=== PATIENT | male | born 1970 | race Caucasian/White ===

== ENCOUNTER 2017-06-11 05:45 | Emergency (ER) | payer BC ==
[2017-06-11 06:01] VITALS: BP 156/85; PULSE 79; RESP 20; TEMP 97.3; O2SAT 97
[2017-06-11] MEDS ORDERED: FAMOTIDINE 20 MG TAB PO ONE (06:15)
[2017-06-11] MEDS ORDERED: predniSONE 20 MG TAB PO ONE (06:15)
--- NOTE | 2017-06-11 06:23 | EDPHY ---
H & P Time Seen by Provider: 06/11/17 06:03 HPI/ROS: This patient complains of itching rash that started Monday new the umbilicus in his spread throughout all 4 extremities and back since then with significant itching. He has been taking citrizine HCL antihistamine without significant improvement and this morning for the 1st time he developed associated angioedema to his lips describing lip swelling and final symptom is what prompted him his visit. He drove himself here by private car for further evaluation. ROS: Constitutional: No fevers or significant fatigue HEENT: No dysphonia. Pulmonary: No dyspnea Cardiovascular: No lightheadedness her heart palpitations GI: No nausea vomiting 10 point ROS is otherwise negative. 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 He can't think of any other new allergens. He does have 2 dogs but he has had them for years. He smokes cigarettes on average 5 to 8 cigarettes a day. Occasional marijuana, no alcohol Smoking Status: Light smoker Physical Exam: General Appearance: Alert, no distress. Eyes: Pupils equal and round no pallor or injection. ENT, Mouth: Mucous membranes moist. Patient has mild swelling of the lips upper and lower. However he maintains a Mallampati 1 airway. There is no drooling or stridor. No dysphonia. No intraoral lesions. Respiratory: There are no retractions, lungs are clear to auscultation. No wheezing. Cardiovascular: Regular rate and rhythm. No murmur gallop or rub Neurological: GCS 15 without deficits Skin: Diffuse erythematous raised lesions tobias easily with pressure consistent with urticaria on belly, back and all 4 extremities. Musculoskeletal: Neck is supple nontender. Extremities are symmetrical, full range of motion. Psychiatric: Mood and affect are normal DIFFERENTIAL DIAGNOSIS: After history and physical exam differential diagnosis was considered for allergic urticaria, angioedema atopic dermatitis Constitutional: Initial Vital Signs Temperature (C) 36.3 C 06/11/17 05:50 Heart Rate 79 06/11/17 05:50 Respiratory Rate 20 06/11/17 05:50 Blood Pressure 156/85 H 06/11/17 05:50 O2 Sat (%) 97 06/11/17 05:50 O2 Delivery Mode Room Air Allergies/Adverse Reactions: No Known Allergies Allergy (Verified 06/11/17 05:47) Home Medications: Medication Instructions Recorded Citalopram 03/24/14 Prilosec 03/24/14 Statin 06/11/17 predniSONE 40 mg PO DAILY #9 tab 06/11/17 traZODone 06/11/17 MDM/Departure - MDM Medications Given: Discontinued Medications Famotidine (Pepcid) 40 mg PO EDNOW ONE Stop: 06/11/17 06:16 Last Admin: 06/11/17 06:23 Dose: 40 mg Prednisone (Prednisone) 60 mg PO EDNOW ONE Stop: 06/11/17 06:16 Last Admin: 06/11/17 06:23 Dose: 60 mg ED Course/Re-evaluation: Patient with 2 and half days of symptoms without clinical evidence of anaphylaxis at this time. Prednisone-60 mg p.o. and Pepcid. Patient will take Benadryl when he gets home. I counseled patient regarding angioedema and allergic urticaria. The source of his allergic response is unclear. Encouraged him to follow up with Dr. Ludwig- sheet metal mechanic He understands the need to return the emergency department should he developed any significant worsening with symptoms despite the treatment plan. - Depart Disposition: Home, Routine, Self-Care Clinical Impression: Allergic reaction Qualifiers: Encounter type: initial encounter Qualified Code(s): T78.40XA - Allergy, unspecified, initial encounter Angioedema Qualifiers: Encounter type: initial encounter Qualified Code(s): T78.3XXA - Angioneurotic edema, initial encounter Condition: Good Instructions: Urticaria (ED), Angioedema (ED) Additional Instructions: Dx: Allergic urticaria 2. Angioedema Plan: Prednisone in the morning for the next 3-5 days Diphenhydramine 25-50 mg per 6 hours as needed or antihistamine of your choice Pepcid in addition 40 mg a day. Return for any significant worsening despite the treatment plan Consider follow-up with Dr. Ludwig-sheet metal mechanic for skin testing to tried ascertain the source of your allergic response. This Referrals: Michael LUDWIG [Medical Doctor] - As per Instructions
== END 2017-06-11 06:40 | disposition home or self-care (01) ==
LOC: CED 05:45
DX: T78.3XXA Angioneurotic edema, initial encounter (principal); F17.210 Nicotine dependence, cigarettes, uncomplicated

== ENCOUNTER → 2017-07-04 | Outpatient (CLI) | payer BC, OTHER | LOC: FIMAGING 07:27 | PROVIDERS: ATTEND Orthopaedic Surgery | DX: Z01.818 Encounter for other preprocedural examination (principal); M17.12 Unilateral primary osteoarthritis, left knee ==

== ENCOUNTER 2017-08-01 05:55 | Inpatient (IN) | payer BC ==
[2017-08-01] MEDS ORDERED: TRANEXAMIC ACID 880 MG in NS 100 ML IV ONE (06:00)
[2017-08-01] MEDS ORDERED: ROPIVACAINE 0.2% 80 MG, EPINEPHrine 0.2 MG, KETOROLAC TROMETHAMINE 30 MG, morphINE 10 M... IU ONE (06:00)
[2017-08-01] MEDS ORDERED: ceFAZolin 2 GM/DEXTROSE 100 ML IV ONE (06:06)
[2017-08-01] MEDS ORDERED: ACETAMINOPHEN 325 MG TAB PO ONE (06:06)
[2017-08-01] MEDS ORDERED: FAMOTIDINE 20 MG TAB PO ONE (06:06)
[2017-08-01] MEDS ORDERED: LR 1,000 ML IV ONE (06:11)
[2017-08-01] MEDS ORDERED: LIDOCAINE 1% 2 ML INJ ID PRN (06:11)
[2017-08-01] MEDS ORDERED: LIDOCAINE 1% 2 ML INJ ONE (06:16)
--- NOTE | 2017-08-01 06:26 | PDHPUP ---
History & Physical Update H&P update statement: This history and physical update is based on an assessment of the patient which was completed after admission or registration (within 24 hours), but prior to the surgery/procedure.
--- NOTE | 2017-08-01 06:28 | PDIAF ---
- Diagnosis Diagnosis: left knee djd Code Status: Full Code - Medication Management Discharge Medications: Medications to Continue on Transfer Atorvastatin Calcium [Lipitor 40 mg (*)] 40 mg PO DAILY 06/27/17 [Last Taken Unknown] Omeprazole [Prilosec 20 mg] 20 mg PO DAILY 06/27/17 [Last Taken Unknown] Sertraline HCl [Zoloft 100mg (*)] 150 mg PO DAILY 06/27/17 [Last Taken Unknown] traZODone [traZODONE 50MG (*)] 50 mg PO HS 06/27/17 [Last Taken Unknown] Discharge Medications: Refer to the Discharge Home Medication list for PRN reason. - Orders Services needed: Home Care, Physical Therapy Home Care Face to Face: I certify that this patient was under my care and that I had the required [id number] encounter meeting the encounter requirements on the discharge day. My findings support the fact that the patient is homebound as defined in Home Care Face to Face Continued: CMS Chapter 7 Medicare Benefits Manual 30.1.1 , The condition of the patient is such that there exists a normal inability to leave home and consequently, leaving home would require a considerable and taxing effort. Diet Recommendation: no restrictions on diet Diet Texture: Regular Texture Diet Activity/Weight Bearing Restrictions: wbat. rom as tolerated. daily dressing changes. may shower without bandage. no soaking or immersion. aspirin 325 mg po daily. hilario hose x 2 weeks. f/u at two weeks. seek attn for increasing pain , leg pain or swelling , drainage - Follow Up Care Current Providers and Referrals: Trae Mendieta MD [Primary Care Provider] -
[2017-08-01] MEDS ORDERED: ceFAZolin 2 GM/SWFI 2 GM/20 ML SYR IVP ONE (06:30)
[2017-08-01] MEDS ORDERED: CALCIUM CHLORIDE 1 GM/10 ML INJ ONE (06:52)
[2017-08-01] MEDS ORDERED: THROMBIN (BOVINE) 5,000 UNIT VIAL TP ONE (06:52)
[2017-08-01] MEDS ORDERED: ceFAZolin 1 GM/5 ML SYR ONE (06:52)
[2017-08-01] MEDS ORDERED: MIDAZOLAM 2 MG/2 ML VIAL ONE (07:00)
[2017-08-01] MEDS ORDERED: MIDAZOLAM 2 MG/2 ML VIAL IVP ONE (07:06)
--- NOTE | 2017-08-01 07:06 | PDANEPAE ---
ANE History of Present Illness 47 year old male for left total knee. ANE Past Medical History - Cardiovascular History Hx Hypertension: No Hx Arrhythmias: No Hx Chest Pain: No Hx Coronary Artery / Peripheral Vascular Disease: No Hx CHF / Valvular Disease: No Hx Palpitations: No Cardiovascular History Comment: high chol - Pulmonary History Hx COPD: No Hx Asthma/Reactive Airway Disease: No Hx Recent Upper Respiratory Infection: No Hx Oxygen in Use at Home: No Hx Sleep Apnea: Yes Sleep Apnea Screening Result - Last Documented: Positive Pulmonary History Comment: dung positive doesn't use cpap or o2 - Neurologic History Hx Cerebrovascular Accident: No Hx Seizures: No Hx Dementia: No - Endocrine History Hx Diabetes: No Hypothyroid: No Hyperthyroid: No Obesity: mild - Renal History Hx Renal Disorders: No - Liver History Hx Hepatic Disorders: No - Neurological & Psychiatric Hx Hx Neurological and Psychiatric Disorders: No - Cancer History Hx Cancer: No - Congenital Disorder History Hx Congenital Disorders: No - GI History GERD: mild Hx Gastrointestinal Disorders: Yes Gastrointestinal History Comment: reflux- on omeprazole - Other Health History Other Health History: wears glasses - Chronic Pain History Chronic Pain: Yes (left knee pain) - Surgical History Prior Surgeries: left knee scope. right knee scope ANE Review of Systems Review of systems is: negative Review of Systems: - Exercise capacity Exercise capacity: >=4 METS METS (RN): 4 METS ANE Patient History - Allergies Allergies/Adverse Reactions: No Known Allergies Allergy (Verified 07/04/17 11:21) - Home Medications Home medications: home medication list seen and reviewed Home Medications: Atorvastatin Calcium [Lipitor 40 mg (*)] 40 mg PO DAILY 06/27/17 [Last Taken 18:00] Omeprazole [Prilosec 20 mg] 20 mg PO DAILY 06/27/17 [Last Taken 07/31/17 18:00] Sertraline HCl [Zoloft 100mg (*)] 150 mg PO DAILY 06/27/17 [Last Taken 07/31/17 18:00] traZODone [traZODONE 50MG (*)] 50 mg PO HS 06/27/17 [Last Taken 07/31/17 18:00] - NPO status NPO Status: no food or drink >8 hours NPO Since - Liquids (Date): 07/31/17 NPO Since - Liquids (Time): 18:00 NPO Since - Solids (Date): 07/31/17 NPO Since - Solids (Time): 18:00 - Anes Hx Anes Hx: no prior problems - Smoking Hx Smoking Status: Light smoker - Alcohol Use Alcohol Use: Occasionally - Family Anes Hx Family Anes Hx: neg - N/A Family Hx Anesthesia Complications: none ANE Labs/Vital Signs - Vital Signs Vital Signs: reviewed preoperatively; see RN documention for details Blood Pressure: 141/96 Heart Rate: 100 Respiratory Rate: 15 O2 Sat (%): 93 Height: 172.72 cm Weight: 88.451 kg ANE Physical Exam - Airway Neck exam: FROM Mallampati Score: Class 2 Mouth exam: normal dental/mouth exam, guzmán - Pulmonary Pulmonary: no respiratory distress - Cardiovascular Cardiovascular: regular rate and rhythym - ASA Status ASA Status: II ANE Anesthesia Plan Anesthesia Plan: MAC, spinal Regional Anesthesia: single shot NB, adductor canal FNB, POPC/PSR Total IV Anesthesia: No
[2017-08-01] MEDS ORDERED: PROPOFOL/EMULSION 500 MG/50 ML BOTTLE IV ONE ×2 (07:09→07:50)
[2017-08-01] MEDS ORDERED: BUPIVACAINE/DEXTROSE 7.5MG/ML 2 ML SPINAL AMP SP ONE (07:12)
[2017-08-01] MEDS ORDERED: LIDOCAINE 2% JELLY 5 ML TUBE ONE (07:43)
[2017-08-01] MEDS ORDERED: DEXAMETHASONE 4 MG/ML VIAL ONE (07:48)
[2017-08-01] MEDS ORDERED: ONDANSETRON 4 MG/2 ML VIAL ONE (07:48)
[2017-08-01] MEDS ORDERED: ROPIVACAINE HCL 150 MG/30 ML INJ ONE (07:50)
[2017-08-01] MEDS ORDERED: NALOXONE HCL 0.4 MG/ML INJ IVP PRN (08:04)
[2017-08-01] MEDS ORDERED: ONDANSETRON 4 MG/2 ML VIAL IVP PRN ×2 (08:04→09:09)
[2017-08-01] MEDS ORDERED: LR 500 ML IV PRN (08:04)
[2017-08-01] MEDS ORDERED: OXYCODONE/APAP 5/325 TAB PO PRN (08:04)
[2017-08-01] MEDS ORDERED: HYDROmorphONE/DILAUDID 1 MG/ML INJ IVP PRN (08:04)
[2017-08-01] MEDS ORDERED: fentaNYL 100 MCG/2 ML INJ IVP PRN (08:04)
[2017-08-01] MEDS ORDERED: MAGNESIUM HYDROXIDE 30 ML UDCUP PO PRN (09:09)
[2017-08-01] MEDS ORDERED: BISACODYL 10 MG SUPP PR PRN (09:09)
[2017-08-01] MEDS ORDERED: ONDANSETRON DISINTEGRATING 4 MG TAB PO PRN (09:09)
[2017-08-01] MEDS ORDERED: DIAZEPAM 5 MG TAB PO PRN (09:09)
[2017-08-01] MEDS ORDERED: diphenhydrAMINE 25 MG CAP PO PRN (09:09)
[2017-08-01] MEDS ORDERED: traMADol 50 MG TAB PO PRN (09:09)
[2017-08-01] MEDS ORDERED: DIPHENOXYLATE/ATROPINE LOMOTIL 1 TAB PO PRN (09:09)
[2017-08-01] MEDS ORDERED: PROMETHAZINE HCL 25 MG SUPPR PR PRN (09:09)
[2017-08-01] MEDS ORDERED: POLYETHYLENE GLYCOL 3350 17 GM PKT PO PRN (09:09)
[2017-08-01] MEDS ORDERED: TEMAZEPAM 15 MG CAP PO PRN (09:09)
[2017-08-01] MEDS ORDERED: PROMETHAZINE HCL 25 MG/ML INJ IVP PRN (09:09)
[2017-08-01] MEDS ORDERED: LACTULOSE 20 GM/30 ML UDCUP PO PRN (09:09)
[2017-08-01] MEDS ORDERED: METOCLOPRAMIDE 10 MG/2 ML VIAL IVP PRN (09:09)
[2017-08-01] MEDS ORDERED: LR 1,000 ML IV SCH (09:30)
[2017-08-01] MEDS: oxyCODONE IR 5 MG TAB PO PRN ×5 (11:04→20:51)
[2017-08-01] MEDS: ACETAMINOPHEN 325 MG TAB PO SCH ×3 (11:05→23:59)
--- NOTE | 2017-08-01 11:59 | GOP ---
[f rep st] OPERATIVE REPORT DATE OF OPERATION: 08/01/2017 SURGEON: Kushal Francois MD UNIVERSITY LIBRARIAN: Dmitriy Osorio, FIELD SERVICES ANALYST, [facility] surgical physician assistant. PREOPERATIVE DIAGNOSIS: Left knee degenerative joint disease POSTOPERATIVE DIAGNOSIS: Left knee degenerative joint disease PROCEDURE PERFORMED: Left total knee arthroplasty and hardware removal. FINDINGS: SPECIMENS: To Pathology, the bony cuts. INDICATIONS: The patient is a 47-year-old gentleman with end-stage arthritis to his left knee. He h as had a previous history of prior ACL reconstruction with patellar tendon graft. He has developed p rogressive debilitating pain and advanced arthritis changes to his left knee. Clinical radiographic features are consistent with this. As he has failed all attempts at conservative management, I have therefore recommended operative intervention. I have outlined the surgical procedure, risks, benefit s, and alternatives at length. He wished to proceed. Written consent was signed [facility]. DESCRIPTION OF PROCEDURE: The patient was identified in the preanesthesia area. The left knee clear ly demarcated as operative site with indelible marker. He was given 2 g of Ancef intravenously en ro derrick to the operative suite. In the OR, a spinal anesthetic was placed followed by additional sedatio n. He was positioned in the supine position. The left lower extremity was then sterilely prepped an d draped in usual fashion. Tourniquet was applied to the upper thigh. Appropriate time-out procedur e was carried out. The limb was exsanguinated with an Esmarch bandage. Tourniquet inflated to 275 m mHg. Standard anterior midline incision was made incorporating his previous ACL incision. This was ubaldo d sharply through the skin to the subcutaneous tissue. Thick subcutaneous flaps were elevated, follo wed by a medial parapatellar arthrotomy. There were gross tricompartmental bony changes, cartilagino us changes. Therefore, recommended proceeding with total knee replacement. Femoral and tibial refer ence check points were then placed. Separate percutaneous incisions were made in the mid thigh and m id calix, and 2 drill holes were made for the femoral and tibial arrays respectively. The bony landma rks of the knee were then entered into the computer. The knee was balanced with soft tissue releases and removal of the medial osteophytes. Using the LP AminaOplasty robot, the cuts were made for a size 4 femur, size 5 tibia. All bony fragments were withdrawn. The remnants of the previous ACL were excis ed. The hardware screws on both the femur and tibial side were removed without difficulty. A size 4 notch cutter was then affixed to the distal femur. The notch cut was then made. Trial redu ction was carried out over 9 mm polyethylene spacer. This allowed full flexion and extension without instability through the flexion-extension arc. The patella was then everted cut in a freehand cutti ng technique and the bony fragment withdrawn. Drill holes were placed for a size 38 mm asymmetric pa tella. The knee was taken through full range of motion. The patella tracked centrally. There was n o instability throughout the flexion-extension arc. The trial components were withdrawn. The bony s urfaces thoroughly cleansed and dried with a pulsatile lavage solution. In a sequential fashion the tibial, femoral and patellar components were cemented. The final polyethylene spacer was placed and confirmed to be fully seated. The knee was held in extension until the cement had fully cured. The margins were instilled with a joint cocktail of ropivacaine, morphine, Toradol, and epinephrine. The medial parapatellar arthrotomy closed using #1 Ethibond suture. The knee instilled with a platel et-rich plasma solution. The subcutaneous tissue closed using a 0 Monocryl Quill equivalent. The sk in was stapled. The femur and tibia incisions were closed using 2-0 Monocryl and hieu as well. A sterile dressing was applied. The patient was awakened, extubated, taken recovery room in good, sta ble condition. Total tourniquet time was 65 minutes. COMPLICATIONS: None. IMPLANTS: [place] Triathlon knee size 4 tibia, size 5, femur, size 5 x 9 mm polyethylene, size 38 mm asymmetric poly patella. DISPOSITION: To the recovery room and then the floor. /[id number]/MODL
--- NOTE | 2017-08-01 11:59 | GOP ---
[f rep st] OPERATIVE REPORT DATE OF OPERATION: 08/01/2017 SURGEON: Kushal Francois MD MATH COACH: Dmitriy Osorio, PLASTERING SUPERVISOR, [facility] surgical nurse practitioner. PREOPERATIVE DIAGNOSIS: Left knee degenerative joint disease POSTOPERATIVE DIAGNOSIS: Left knee degenerative joint disease PROCEDURE PERFORMED: Left total knee arthroplasty and hardware removal. FINDINGS: SPECIMENS: To Pathology, the bony cuts. INDICATIONS: The patient is a 47-year-old gentleman with end-stage arthritis to his left knee. He h as had a previous history of prior ACL reconstruction with patellar tendon graft. He has developed p rogressive debilitating pain and advanced arthritis changes to his left knee. Clinical radiographic features are consistent with this. As he has failed all attempts at conservative management, I have therefore recommended operative intervention. I have outlined the surgical procedure, risks, benefit s, and alternatives at length. He wished to proceed. Written consent was signed [facility]. DESCRIPTION OF PROCEDURE: The patient was identified in the preanesthesia area. The left knee clear ly demarcated as operative site with indelible marker. He was given 2 g of Ancef intravenously en ro derrick to the operative suite. In the OR, a spinal anesthetic was placed followed by additional sedatio n. He was positioned in the supine position. The left lower extremity was then sterilely prepped an d draped in usual fashion. Tourniquet was applied to the upper thigh. Appropriate time-out procedur e was carried out. The limb was exsanguinated with an Esmarch bandage. Tourniquet inflated to 275 m mHg. Standard anterior midline incision was made incorporating his previous ACL incision. This was ubaldo d sharply through the skin to the subcutaneous tissue. Thick subcutaneous flaps were elevated, follo wed by a medial parapatellar arthrotomy. There were gross tricompartmental bony changes, cartilagino us changes. Therefore, recommended proceeding with total knee replacement. Femoral and tibial refer ence check points were then placed. Separate percutaneous incisions were made in the mid thigh and m id calix, and 2 drill holes were made for the femoral and tibial arrays respectively. The bony landma rks of the knee were then entered into the computer. The knee was balanced with soft tissue releases and removal of the medial osteophytes. Using the I.PredictusOplasty robot, the cuts were made for a size 4 femur, size 5 tibia. All bony fragments were withdrawn. The remnants of the previous ACL were excis ed. The hardware screws on both the femur and tibial side were removed without difficulty. A size 4 notch cutter was then affixed to the distal femur. The notch cut was then made. Trial redu ction was carried out over 9 mm polyethylene spacer. This allowed full flexion and extension without instability through the flexion-extension arc. The patella was then everted cut in a freehand cutti ng technique and the bony fragment withdrawn. Drill holes were placed for a size 38 mm asymmetric pa tella. The knee was taken through full range of motion. The patella tracked centrally. There was n o instability throughout the flexion-extension arc. The trial components were withdrawn. The bony s urfaces thoroughly cleansed and dried with a pulsatile lavage solution. In a sequential fashion the tibial, femoral and patellar components were cemented. The final polyethylene spacer was placed and confirmed to be fully seated. The knee was held in extension until the cement had fully cured. The margins were instilled with a joint cocktail of ropivacaine, morphine, Toradol, and epinephrine. The medial parapatellar arthrotomy closed using #1 Ethibond suture. The knee instilled with a platel et-rich plasma solution. The subcutaneous tissue closed using a 0 Monocryl Quill equivalent. The sk in was stapled. The femur and tibia incisions were closed using 2-0 Monocryl and hieu as well. A sterile dressing was applied. The patient was awakened, extubated, taken recovery room in good, sta ble condition. Total tourniquet time was 65 minutes. COMPLICATIONS: None. IMPLANTS: [place] Triathlon knee size 4 tibia, size 5, femur, size 5 x 9 mm polyethylene, size 38 mm asymmetric poly patella. DISPOSITION: To the recovery room and then the floor. /[id number]/MODL
--- NOTE | 2017-08-01 11:59 | GOP ---
[f rep st] OPERATIVE REPORT DATE OF OPERATION: 08/01/2017 SURGEON: Kushal Francois MD SERVICE LEARNING COORDINATOR: Dmitriy Osorio, SPRAY DRY OPERATOR, [facility] office assistant. PREOPERATIVE DIAGNOSIS: Left knee degenerative joint disease POSTOPERATIVE DIAGNOSIS: Left knee degenerative joint disease PROCEDURE PERFORMED: Left total knee arthroplasty and hardware removal. FINDINGS: SPECIMENS: To Pathology, the bony cuts. INDICATIONS: The patient is a 47-year-old gentleman with end-stage arthritis to his left knee. He h as had a previous history of prior ACL reconstruction with patellar tendon graft. He has developed p rogressive debilitating pain and advanced arthritis changes to his left knee. Clinical radiographic features are consistent with this. As he has failed all attempts at conservative management, I have therefore recommended operative intervention. I have outlined the surgical procedure, risks, benefit s, and alternatives at length. He wished to proceed. Written consent was signed [facility]. DESCRIPTION OF PROCEDURE: The patient was identified in the preanesthesia area. The left knee clear ly demarcated as operative site with indelible marker. He was given 2 g of Ancef intravenously en ro derrick to the operative suite. In the OR, a spinal anesthetic was placed followed by additional sedatio n. He was positioned in the supine position. The left lower extremity was then sterilely prepped an d draped in usual fashion. Tourniquet was applied to the upper thigh. Appropriate time-out procedur e was carried out. The limb was exsanguinated with an Esmarch bandage. Tourniquet inflated to 275 m mHg. Standard anterior midline incision was made incorporating his previous ACL incision. This was ubaldo d sharply through the skin to the subcutaneous tissue. Thick subcutaneous flaps were elevated, follo wed by a medial parapatellar arthrotomy. There were gross tricompartmental bony changes, cartilagino us changes. Therefore, recommended proceeding with total knee replacement. Femoral and tibial refer ence check points were then placed. Separate percutaneous incisions were made in the mid thigh and m id calix, and 2 drill holes were made for the femoral and tibial arrays respectively. The bony landma rks of the knee were then entered into the computer. The knee was balanced with soft tissue releases and removal of the medial osteophytes. Using the Take5Oplasty robot, the cuts were made for a size 4 femur, size 5 tibia. All bony fragments were withdrawn. The remnants of the previous ACL were excis ed. The hardware screws on both the femur and tibial side were removed without difficulty. A size 4 notch cutter was then affixed to the distal femur. The notch cut was then made. Trial redu ction was carried out over 9 mm polyethylene spacer. This allowed full flexion and extension without instability through the flexion-extension arc. The patella was then everted cut in a freehand cutti ng technique and the bony fragment withdrawn. Drill holes were placed for a size 38 mm asymmetric pa tella. The knee was taken through full range of motion. The patella tracked centrally. There was n o instability throughout the flexion-extension arc. The trial components were withdrawn. The bony s urfaces thoroughly cleansed and dried with a pulsatile lavage solution. In a sequential fashion the tibial, femoral and patellar components were cemented. The final polyethylene spacer was placed and confirmed to be fully seated. The knee was held in extension until the cement had fully cured. The margins were instilled with a joint cocktail of ropivacaine, morphine, Toradol, and epinephrine. The medial parapatellar arthrotomy closed using #1 Ethibond suture. The knee instilled with a platel et-rich plasma solution. The subcutaneous tissue closed using a 0 Monocryl Quill equivalent. The sk in was stapled. The femur and tibia incisions were closed using 2-0 Monocryl and hieu as well. A sterile dressing was applied. The patient was awakened, extubated, taken recovery room in good, sta ble condition. Total tourniquet time was 65 minutes. COMPLICATIONS: None. IMPLANTS: [place] Triathlon knee size 4 tibia, size 5, femur, size 5 x 9 mm polyethylene, size 38 mm asymmetric poly patella. DISPOSITION: To the recovery room and then the floor. /[id number]/MODL
--- NOTE | 2017-08-01 12:38 | POSTANESTH ---
Post Anesthetic Evaluation Cardiovascular Status: Normal, Stable, Similar to Pre-Op Cond Respiratory Status: Normal, Stable, Similar to Pre-op Cond. Level of Consciousness/Mental Status: Can Participate in Eval, Alert and Oriented Pain Control: Adequate, Prn Tx Ordered Nausea/Vomiting Control: Adequate, Prn Tx Ordered Complications Possibly Related to Anesthesia: None Noted
--- NOTE | 2017-08-01 14:34 | ASMTCMCOM ---
CM Note CM Note Notes: Patient is POD #[address] Francois. Initial PT eval suggests that he will discharge home with his (who is a EXECUTIVE DIRECTOR OF NURSING). He has outpatient PT scheduled. CM available if discharge needs change. Date Signed: 08/01/2017 02:33 PM Electronically Signed By:Ingrid Helton RN
--- NOTE | 2017-08-01 14:34 | ASMTCMCOM ---
CM Note CM Note Notes: Patient is POD #[address] Francois. Initial PT eval suggests that he will discharge home with his (who is a COMPUTER SERVICE TECHNICIAN). He has outpatient PT scheduled. CM available if discharge needs change. Date Signed: 08/01/2017 02:33 PM Electronically Signed By:Ingrid Helton RN
--- NOTE | 2017-08-01 14:34 | ASMTCMCOM ---
CM Note CM Note Notes: Patient is POD #[address] Francois. Initial PT eval suggests that he will discharge home with his (who is a KITCHEN SUPERVISOR). He has outpatient PT scheduled. CM available if discharge needs change. Date Signed: 08/01/2017 02:33 PM Electronically Signed By:Ingrid Helton RN
[2017-08-01 14:45] VITALS: RESP 16
[2017-08-01] MEDS: ceFAZolin 2 GM/DEXTROSE 100 ML IV SCH (15:26)
[2017-08-01] MEDS: TRANEXAMIC ACID 650 MG TAB PO SCH ×2 (17:58→23:59)
[2017-08-01] MEDS: SENNOSIDES/DOCUSATE SODIUM TAB PO SCH (20:50)
[2017-08-01] MEDS: ASPIRIN 325 MG TAB PO SCH (20:50)
[2017-08-01] MEDS: FAMOTIDINE 20 MG TAB PO SCH (20:50)
[2017-08-01] MEDS ORDERED: traZODone 50 MG TAB PO SCH (21:00)
[2017-08-02] MEDS: ceFAZolin 2 GM/DEXTROSE 100 ML IV SCH
[2017-08-02] MEDS: oxyCODONE IR 5 MG TAB PO PRN ×3 (00:04→08:54)
[2017-08-02] MEDS: ACETAMINOPHEN 325 MG TAB PO SCH ×2 (05:06→11:15)
--- NOTE | 2017-08-02 06:36 | PDIAF ---
- Diagnosis Diagnosis: left knee djd Code Status: Full Code - Medication Management Discharge Medications: Medications to Continue on Transfer Atorvastatin Calcium [Lipitor 40 mg (*)] 40 mg PO DAILY 06/27/17 [Last Taken 18:00] Omeprazole [Prilosec 20 mg] 20 mg PO DAILY 06/27/17 [Last Taken 07/31/17 18:00] Sertraline HCl [Zoloft 100mg (*)] 150 mg PO DAILY 06/27/17 [Last Taken 07/31/17 18:00] traZODone [traZODONE 50MG (*)] 50 mg PO HS 06/27/17 [Last Taken 07/31/17 18:00] Aspirin [Aspirin 325 mg (*)] 325 mg PO DAILY tab 08/02/17 [Last Taken Unknown] oxyCODONE IR [Oxycodone Ir (*)] 5 - 10 mg PO Q3HRS PRN #70 tab 08/02/17 [Last Taken Unknown] Discharge Medications: Refer to the Discharge Home Medication list for PRN reason. - Orders Services needed: Home Care, Physical Therapy Home Care Face to Face: I certify that this patient was under my care and that I had the required [id number] encounter meeting the encounter requirements on the discharge day. My findings support the fact that the patient is homebound as defined in Home Care Face to Face Continued: CMS Chapter 7 Medicare Benefits Manual 30.1.1 , The condition of the patient is such that there exists a normal inability to leave home and consequently, leaving home would require a considerable and taxing effort. Diet Recommendation: no restrictions on diet Diet Texture: Regular Texture Diet Activity/Weight Bearing Restrictions: wbat. rom as tolerated. daily dressing changes. may shower without bandage. no soaking or immersion. aspirin 325 mg po daily. hilario hose x 2 weeks. f/u at two weeks. seek attn for increasing pain , leg pain or swelling , drainage - Follow Up Care Current Providers and Referrals: Trae Mendieta MD [Primary Care Provider] -
--- NOTE | 2017-08-02 07:03 | GDS ---
[f rep st] DISCHARGE SUMMARY ADMISSION DIAGNOSIS: Left knee degenerative joint disease. DISCHARGE DIAGNOSIS: Left knee degenerative joint disease. PROCEDURE: Left total knee arthroplasty, MAKOplasty. HISTORY OF PRESENT ILLNESS: The patient is a 47-year-old gentleman who has end-stage arthritis to hi s left knee. Clinical and radiographic features are consistent with this. He has failed attempts at conservative management. I have, therefore, recommended operative intervention with total knee repl acement. HOSPITAL COURSE: He was admitted overnight per standard protocol. He had no subsequent complication s. At the time of discharge, he is tolerating an oral diet. Pain is well controlled on oral medicin es. He is voiding without difficulty. He has negative Homans bilateral lower extremities. X-rays a re stable with anatomic alignment. DISCHARGE ACTIVITY: Weightbearing as tolerated. Range of motion as tolerated. Daily dressing [place] es. No soaking or immersion. May shower without the bandage. FOLLOWUP: 2 weeks. Seek attention for increasing redness, swelling, drainage. DISCHARGE MEDICATIONS: Aspirin 325 mg p.o. daily and oxycodone 5 mg 1-2 q.4 hours p.r.n. pain. /[id number]/MODL
[2017-08-02 07:29] VITALS: BP 116/70; PULSE 76; TEMP 97.9; O2SAT 96
[2017-08-02] MEDS: SENNOSIDES/DOCUSATE SODIUM TAB PO SCH (08:56)
[2017-08-02] MEDS: ASPIRIN 325 MG TAB PO SCH (08:58)
[2017-08-02] MEDS: TRANEXAMIC ACID 650 MG TAB PO SCH (08:58)
[2017-08-02] MEDS ORDERED: NON-FORMULARY NEW DRUG (Omeprazole [Prilosec 20 Mg] 20 MG) PO SCH (09:00)
[2017-08-02] MEDS: FAMOTIDINE 20 MG TAB PO SCH (09:00)
[2017-08-02] MEDS ORDERED: PANTOPRAZOLE SODIUM 40 MG TAB PO SCH (09:00)
[2017-08-02] MEDS ORDERED: ATORVASTATIN CALCIUM 40 MG TAB PO SCH (09:00)
[2017-08-02] MEDS ORDERED: SERTRALINE HCL 100 MG TAB PO SCH (09:00)
[2017-08-02] MEDS ORDERED: PNEUMOCOCCAL 0.5ML VACCINE VIAL IM ONE (11:12)
[2017-08-02] MEDS ORDERED: PNEUMOC 13-VAL CONJ-DIP CRM/PF 0.5 ML SYR IM ONE (11:14)
[2017-08-02] MEDS ORDERED: PNEUMOCOCCAL 0.5ML VACCINE VIAL ONE (11:19)
--- NOTE | 2017-08-02 14:59 | ASDISCHSUM ---
Discharge Information Plan Status:Home with Home Health Medically Cleared to Leave: Discharge Date:08/02/2017 11:40 AM D/C Disposition:Home Health Service ADT D/C Disposition:Home, Routine, Self-Care Projected Discharge Date:08/02/2017 11:00 AM Transportation at D/C: Discharge Delay Reason: Follow-Up Date:08/02/2017 11:00 AM Discharge Slot: Final Diagnosis: Placement Information Referral Type:*Home Health Care Services Referral ID:[id number] Provider Name:Delvin [facility] [place] Address [address] [address] Phone Number: Address 2: Fax Number: City:[place] Selection Factors: State:[place] Patient Contact Information Contact Name:KAI Relationship: Address:[address] City:[place] Alternate Phone: State/Zip Code:[place] [address] Email: Financial Information Financial Class:HMO and PPO Plans Primary Plan Desc: OUT OF STATE PPO Primary Plan Number:[id number] Secondary Plan Desc: Secondary Plan Number: Assessment Information [facility] CM Progress Note CM Note CM Note Notes: Patient is POD #[address] Francois. Initial PT eval suggests that he will discharge home with his (who is a OFFICE CLIN ASST). He has outpatient PT scheduled. CM available if discharge needs change. Date Signed: 08/01/2017 02:33 PM Electronically Signed By:Ingrid Helton RN [facility] CM Progress Note CM Note CM Note Notes: [facility] Orders sent in [employer]. Date Signed: 08/02/2017 02:58 PM Electronically Signed By:LATONYA Julien Intervention Information
--- NOTE | 2017-08-02 14:59 | ASMTCMCOM ---
CM Note CM Note Notes: Pt and request HHC, [facility] accepts pt. Orders sent in [employer]. Date Signed: 08/02/2017 02:58 PM Electronically Signed By:LATONYA Julien
--- NOTE | 2017-08-02 14:59 | ASDISCHSUM ---
Discharge Information Plan Status:Home with Home Health Medically Cleared to Leave: Discharge Date:08/02/2017 11:40 AM D/C Disposition:Home Health Service ADT D/C Disposition:Home, Routine, Self-Care Projected Discharge Date:08/02/2017 11:00 AM Transportation at D/C: Discharge Delay Reason: Follow-Up Date:08/02/2017 11:00 AM Discharge Slot: Final Diagnosis: Placement Information Referral Type:*Home Health Care Services Referral ID:[id number] Provider Name:Delvin [facility] [place] Address [address] [address] Phone Number: Address 2: Fax Number: City:[place] Selection Factors: State:[place] Patient Contact Information Contact Name:KAI Relationship: Address:[address] City:[place] Alternate Phone: State/Zip Code:[place] [address] Email: Financial Information Financial Class:HMO and PPO Plans Primary Plan Desc: OUT OF STATE PPO Primary Plan Number:[id number] Secondary Plan Desc: Secondary Plan Number: Assessment Information [facility] CM Progress Note CM Note CM Note Notes: Patient is POD #[address] Francois. Initial PT eval suggests that he will discharge home with his (who is a COUTURE ALTERATIONS DRESSMAKER). He has outpatient PT scheduled. CM available if discharge needs change. Date Signed: 08/01/2017 02:33 PM Electronically Signed By:Ingrid Helton RN [facility] CM Progress Note CM Note CM Note Notes: [facility] Orders sent in [employer]. Date Signed: 08/02/2017 02:58 PM Electronically Signed By:LATONYA Julien Intervention Information
--- NOTE | 2017-08-02 14:59 | ASMTCMCOM ---
CM Note CM Note Notes: Pt and request HHC, [facility] accepts pt. Orders sent in [employer]. Date Signed: 08/02/2017 02:58 PM Electronically Signed By:LATONYA Julien
--- NOTE | 2017-08-02 14:59 | ASMTCMCOM ---
CM Note CM Note Notes: Pt and request HHC, [facility] accepts pt. Orders sent in [employer]. Date Signed: 08/02/2017 02:58 PM Electronically Signed By:LATONYA Julien
--- NOTE | 2017-08-02 14:59 | ASDISCHSUM ---
Discharge Information Plan Status:Home with Home Health Medically Cleared to Leave: Discharge Date:08/02/2017 11:40 AM D/C Disposition:Home Health Service ADT D/C Disposition:Home, Routine, Self-Care Projected Discharge Date:08/02/2017 11:00 AM Transportation at D/C: Discharge Delay Reason: Follow-Up Date:08/02/2017 11:00 AM Discharge Slot: Final Diagnosis: Placement Information Referral Type:*Home Health Care Services Referral ID:[id number] Provider Name:Delvin [facility] [place] Address [address] [address] Phone Number: Address 2: Fax Number: City:[place] Selection Factors: State:[place] Patient Contact Information Contact Name:KAI Relationship: Address:[address] [address] City:[place] Alternate Phone: State/Zip Code:[place] [address] Email: Financial Information Financial Class:HMO and PPO Plans Primary Plan Desc: OUT OF STATE PPO Primary Plan Number:[id number] Secondary Plan Desc: Secondary Plan Number: Assessment Information [facility] CM Progress Note CM Note CM Note Notes: Patient is POD #[address] Francois. Initial PT eval suggests that he will discharge home with his (who is a FLEET ASSISTANT). He has outpatient PT scheduled. CM available if discharge needs change. Date Signed: 08/01/2017 02:33 PM Electronically Signed By:Ingrid Helton RN [facility] CM Progress Note CM Note CM Note Notes: [facility] Orders sent in [employer]. Date Signed: 08/02/2017 02:58 PM Electronically Signed By:LATONYA Julien Intervention Information
== END 2017-08-02 11:40 | disposition home or self-care (01) | DRG 468 ==
LOC: F3N 05:55
PROVIDERS: ADMIT Orthopaedic Surgery; ATTEND Orthopaedic Surgery
DX: M17.12 Unilateral primary osteoarthritis, left knee (principal); E78.00 Pure hypercholesterolemia, unspecified; G47.33 Obstructive sleep apnea (adult) (pediatric); Z23 Encounter for immunization
CPT/HCPCS: 97110-GP; 97116-GP; 97161-GP; 97165-GO; C1713; G0009; J0171; J0690; J1100; J1885; J2250; J2405; J2704; J2795

== ENCOUNTER → 2017-09-19 | Outpatient (CLI) | payer BC | LOC: BMCIMAGING 14:36 | PROVIDERS: ATTEND Orthopaedic Surgery | DX: Z96.652 Presence of left artificial knee joint (principal) ==

== ENCOUNTER → 2017-11-03 | Outpatient (CLI) | payer BC | LOC: BMCIMAGING 09:25 | PROVIDERS: ATTEND Physician Assistant | DX: Z47.1 Aftercare following joint replacement surgery (principal); Z96.652 Presence of left artificial knee joint ==

== ENCOUNTER → 2018-01-31 | Outpatient (CLI) | payer BC | LOC: BMCIMAGING 08:36 | PROVIDERS: ATTEND Physician Assistant | DX: Z96.652 Presence of left artificial knee joint (principal); Z09 Encounter for follow-up examination after completed treatment for conditions other than malignant neoplasm ==